=== PATIENT | male | born 1935 | race Caucasian/White ===

== ENCOUNTER → 2016-08-17 | Outpatient (CLI) | payer MEDICARE | END | disposition home or self-care (01) | LOC: LABWHC1 13:18 | PROVIDERS: ATTEND Internal Medicine Rheumatology | DX: M35.3 Polymyalgia rheumatica (principal) | CPT/HCPCS: 36415; 85652; 86140 ==

== ENCOUNTER → 2020-07-06 | Outpatient (CLI) | payer MEDICARE | END | disposition home or self-care (01) | LOC: LABWHC1 13:38 | PROVIDERS: ATTEND Urology | DX: R97.20 Elevated prostate specific antigen [PSA] (principal) | CPT/HCPCS: 36415; 84153 ==

== ENCOUNTER → 2021-02-16 | Outpatient (CLI) | payer MEDICARE ==
[2021-02-17 04:06] LABS: African American GFR (CKD) 89.9 (60.0-200.0); Albumin 4.4 g/dL (3.80-4.90); Albumin/Globulin Ratio 1.42 (1.60-3.17); Anion Gap 11.4 mmol/L (4.00-12.00); BUN/Creat Ratio 18.89 Ratio (12.00-20.00); Calcium 9.4 mg/dL (8.7-10.3); Carbon Dioxide 26.6 mmol/L (21.6-31.8); Globulin 3.1 g/dL (1.6-3.3); Non-African American GFR(CKD) 77.6 (60.0-200.0); Potassium 4.6 mmol/L (3.5-5.5); Total Bilirubin 1.5 mg/dL (0.2-1.2); Total Protein 7.5 g/dL (6.2-8.2)
== END | disposition home or self-care (01) ==
LOC: LABWHC1 11:23
PROVIDERS: ATTEND Nurse Practitioner Adult Health
DX: I48.11 Longstanding persistent atrial fibrillation (principal); R00.1 Bradycardia, unspecified
CPT/HCPCS: 36415; 80053; 84443

== ENCOUNTER → 2021-04-15 | Outpatient (CLI) | payer MEDICARE ==
[2021-04-15 17:28] LABS: African American GFR (CKD) 82.8 (60.0-200.0); BUN/Creat Ratio 20.54 Ratio (12.00-20.00); Blood Urea Nitrogen 19.8 mg/dL (9.0-27.0); Calcium 9.6 mg/dL (8.7-10.3); Carbon Dioxide 27.2 mmol/L (21.6-31.8); Non-African American GFR(CKD) 71.4 (60.0-200.0); Potassium 4.8 mmol/L (3.5-5.5)
== END | disposition home or self-care (01) ==
LOC: LABWHC1 09:56
PROVIDERS: ATTEND Nurse Practitioner Adult Health
DX: I10 Essential (primary) hypertension (principal)
CPT/HCPCS: 36415; 80048

== ENCOUNTER 2021-05-01 16:32 | Emergency (ER) | payer OTHER, MEDICARE ==
[2021-05-01 16:46] VITALS: TEMP 97.8
[2021-05-01] MEDS ORDERED: RX INFO: IV CONTRAST WAS GIVEN 1 EACH MISC MISCELLANE PRN (17:09)
[2021-05-01] MEDS ORDERED: ACETAMINOPHEN TAB 500 MG TAB PO STA (17:10)
[2021-05-01 17:21] LABS: Basophils # (A) 0.1 k/uL (0-0.2); Basophils % (A) 1 %; Eosinophils # (A) 0.4 k/uL (0-0.7); Eosinophils % (A) 4 %; HCT 41.9 % (39.0-53.0); HGB 15.7 gm/dL (13.0-17.5); Lymphocytes # (A) 2.4 k/uL (1.0-4.8); Lymphocytes % (A) 24 %; MCH 36.5 pg (25.0-35.0); MCHC 37.6 g/dL (31.0-37.0); MCV 97.2 fL (80.0-100.0); Mean Platelet Volume 8.2; Monocytes # (A) 0.4 k/uL (0-1.0); Monocytes % (A) 4 %; Neutrophils # (A) 6.5 k/uL (1.3-7.7); Neutrophils % (A) 65 %; Platelet Count 303 k/uL (150-450); RBC 4.31 m/uL (4.30-5.90); WBC 9.9 k/uL (3.8-10.6)
--- NOTE | 2021-05-01 17:26 | ED ---
General Adult HPI - General Chief complaint: Upper Respiratory Infection Stated complaint: cough Source: patient, family, RN notes reviewed, old records reviewed Mode of arrival: ambulatory Limitations: no limitations - History of Present Illness Initial comments: I evaluated the patient when he was placed in a room. Patient is an 86-year-old male with past medical history remarkable for atrial fibrillation, hypertension on anticoagulation who is compliant with medications who presents emergency Department after being sent in from urgent care. Patient present to urgent care this morning over concern for upper respiratory infection. He has been having a worsening cough over the last few days. Has been productive of a grayish white mucus. He has some pain with coughing that is generalized, and states this typically happens when he has a pneumonia in the past. At the outside facility, they did do a chest x-ray. They're concerned for a right lower lobe pneumonia, however the read also stated that there could be an obstructive process and recommended CT chest to rule out possibility of a mass or something similar. Therefore he presents emergency department for further evaluation. He currently denies any acute complaints. He endorses an occasional cough. Denies any fevers or chills or sick contacts. He was vaccinated for COVID-19. His no abdominal pain, nausea, vomiting. He has no urinary complaints at this time. He has no change in bowel habits. He is denying any lower extremity edema or worsening orthopnea. His no paroxysmal nocturnal dyspnea. His no other acute complaints at this time. Denies worsening dyspnea with activity.Patient pres ents for a CT thorax. Patient does endorse a very mild tension-like headache that feels like a belt tied tight around his head and is requesting Tylenol. - Related Data Home Medications Medication Instructions Recorded Confirmed Cholecalciferol [Vitamin D3 (25 2,000 unit PO DAILY 04/30/17 05/01/21 Mcg = 1000 Iu)] Multivitamins, Thera [Multivitamin 1 tab PO DAILY 04/30/17 05/01/21 (formulary)] Losartan Potassium 50 mg PO HS 05/01/21 05/01/21 Metoprolol Tartrate [Lopressor] 12.5 mg PO BID 05/01/21 05/01/21 Potassium Gluconate [Potassium 99 mg PO DAILY 05/01/21 05/01/21 Gluconate ER] Tamsulosin HCl [Flomax] 0.4 mg PO DAILY 05/01/21 05/01/21 hydroCHLOROthiazide [Hydrodiuril] 12.5 mg PO DAILY 05/01/21 05/01/21 Previous Rx's Medication Instructions Recorded Apixaban [Eliquis] 5 mg PO BID #60 tab 05/06/17 Omeprazole [PriLOSEC] 20 mg PO AC-BRKFST #15 cap 05/06/17 Azithromycin [Zithromax] 250 mg PO DAILY 4 Days #4 tab 05/01/21 Allergies Allergy/AdvReac Type Severity Reaction Status Date / Time No Known Allergies Allergy Verified 05/01/21 18:28 Review of Systems ROS Statement: Those systems with pertinent positive or pertinent negative responses have been documented in the HPI. Review of Systems: CONST: Denies fever EYES: Denies blurry vision ENT: Endorses nasal congestion C/V: Denies Chest pain RESP: Endorses cough GI: Denies abdominal pain : Denies dysuria SKIN: Denies rash. MSK: Denies joint pain. NEURO: Endorses headache ROS Other: All systems not noted in ROS Statement are negative. Past Medical History Past Medical History: Hypertension Additional Past Medical History / Comment(s): PMR 2016; [place] Palsy 20 years ago History of Any Multi-Drug Resistant Organisms: None Reported Past Surgical History: Appendectomy, Tonsillectomy Past Anesthesia/Blood Transfusion Reactions: No Reported Reaction Past Psychological History: No Psychological Hx Reported Smoking Status: Never smoker Past Alcohol Use History: Occasional Past Drug Use History: None Reported General Exam - General Exam Comments Initial Comments: General: Appears in no acute distress. Well appearing. HEAD: Normal with no signs of head trauma. EYES: PERRLA, EOMI, conjunctiva normal, no discharge. ENT: Hearing grossly intact, normal oropharynx. RESPIRATORY: Clear breath sounds bilaterally. No wheezes, rales, or rhonchi. No increased work of breathing. C/V: Regular rate with an irregular rhythm. S1 and S2 auscultated. No peripheral edema. Peripheral pulses are 2+ and intact throughout. ABD: Abd is soft, nontender, nondistended EXT: Normal range of motion, no obvious deformity SKIN: No rashes or lesions observed on exposed skin. NEURO: Alert and oriented 4. Limitations: no limitations Course Vital Signs 05/01/21 05/01/21 05/01/21 16:40 17:03 19:10 Temperature 97.8 F Pulse Rate 63 60 Respiratory 22 16 Rate Blood Pressure 157/86 144/92 O2 Sat by Pulse 95 96 100 Oximetry Medical Decision Making - Medical Decision Making Based on the patient's presentation and physical exam, he seems to be having an upper respiratory illness over the last few days. Patient was tested for Covid at the outside facility and he is vaccinated. Covid test was negative based on paperwork that he brought.. However due to being sent for CT thorax to rule out the possibility of obstructive process in his lungs, we will obtain a CT thorax with contrast as well as basic laboratory studies. I do not believe that he requires any further workup at this time. Screening EKG will be obtained. Patient was in agreement this plan. He otherwise appears well and requests Tylenol for mild tension-like headache that he is developing in the resuscitation bay. Patient's EKG shows chronic atrial fibrillation without any signs of acute ischemia.Patient's laboratory studies were remarkable for normal renal function. The remainder of his labs unremarkable. CT of the chest with contrast was obtained and showed no acute cardiopulmonary process. There is no obstructing mass or const consolidation or pleural effusion. There is no pneumothorax. There is a small hiatal hernia. On reevaluation come patient remains relatively asymptomatic. He has an occasional cough. We discussed the results of his imaging and labs. Believe it is safer to be discharged home at this time. Due to the persistent cough, patient is requesting antibiotics. I believe it is reasonable to provide him with a Z-Madan for home with close follow up with his PCP. He was in agreement with this plan. He will be given a dose of azithromycin prior to discharge 500 mg and a prescription for the remaining doses. I will provide the patient with a prescription for azithromycin. I instructed the patient to follow up with their PCP in the next 3 days . I explained that the patient should return to the emergency department if they experience any worsening symptoms. Strict return precautions were discussed with the patient. The patient expressed understanding of these instructions. I answered all questi ons that the patient had. The patient was discharged home in good condition with their prescriptions and follow up information. - Lab Data Result diagrams: 05/01/21 17:12 05/01/21 17:12 Lab Results 05/01/21 05/01/21 Range/Units 17:12 17:12 WBC 9.9 (3.8-10.6) k/uL RBC 4.31 (4.30-5.90) m/uL Hgb 15.7 (13.0-17.5) gm/dL Hct 41.9 (39.0-53.0) % MCV 97.2 (80.0-100.0) fL MCH 36.5 H (25.0-35.0) pg MCHC 37.6 H (31.0-37.0) g/dL RDW 13.0 (11.5-15.5) % Plt Count 303 (150-450) k/uL MPV 8.2 Neutrophils % 65 % Lymphocytes % 24 % Monocytes % 4 % Eosinophils % 4 % Basophils % 1 % Neutrophils # 6.5 (1.3-7.7) k/uL Lymphocytes # 2.4 (1.0-4.8) k/uL Monocytes # 0.4 (0-1.0) k/uL Eosinophils # 0.4 (0-0.7) k/uL Basophils # 0.1 (0-0.2) k/uL Sodium 138 (137-145) mmol/L Potassium 4.1 (3.5-5.1) mmol/L Chloride 101 (98-107) mmol/L Carbon Dioxide 29 (22-30) mmol/L Anion Gap 8 mmol/L BUN 16 (9-20) mg/dL Creatinine 0.80 (0.66-1.25) mg/dL Est GFR (CKD-EPI)AfAm >90 (>60 ml/min/1.73 sqM) Est GFR (CKD-EPI)NonAf 82 (>60 ml/min/1.73 sqM) Glucose 99 (74-99) mg/dL Calcium 9.5 (8.4-10.2) mg/dL Magnesium 2.1 (1.6-2.3) mg/dL - EKG Data -: EKG Interpreted by Me EKG Comments: 12-lead Electrocardiogram Interpretation Note EKG was reviewed and interpreted by myself. 12-lead ECG performed at 1656 is interpreted by me as revealing atrial fibrillation at a rate of 61 beats per minute. [place] is normal. DC interval is unobtainable, QRS ration is 100 ms, QTc is 420 ms.. There were no ST or T wave abnormalities to suggest myocardial ischemia or injury. R wave progression across the precordium was satisfactory. By my interpretation this EKG is non-diagnostic for acute ischemia. Disposition Clinical Impression: URI (upper respiratory infection) Disposition: HOME SELF-CARE Condition: Good Instructions (If sedation given, give patient instructions): Upper Respiratory Infection (ED) Prescriptions: Azithromycin [Zithromax] 250 mg PO DAILY 4 Days #4 tab Is patient prescribed a controlled substance at d/c from ED?: No Referrals: [facility],Clinic [Primary Care Provider] - 1-2 days
[2021-05-01 17:54] LABS: African American GFR (CKD) >90 (>60 ml/min/1.73 sqM); Anion Gap 8 mmol/L; Blood Urea Nitrogen 16 mg/dL (9-20); Calcium 9.5 mg/dL (8.4-10.2); Carbon Dioxide 29 mmol/L (22-30); Chloride 101 mmol/L (98-107); Glucose 99 mg/dL (74-99); Magnesium 2.1 mg/dL (1.6-2.3); Non-African American GFR(CKD) 82 (>60 ml/min/1.73 sqM); Potassium 4.1 mmol/L (3.5-5.1); Sodium 138 mmol/L (137-145)
--- NOTE | 2021-05-01 18:46 | CT ---
EXAMINATION TYPE: CT chest w con DATE OF EXAM: 05/01/2021 COMPARISON: CT chest 06/23/2017 HISTORY: Cough for [address] DLP: 576 mGycm. Automated Exposure Control for Dose Reduction was Utilized. CONTRAST: CT scan of the thorax is performed with IV Contrast, patient injected with 100 mL of Isovue 300. 2-D sagittal and coronal reformatted images were obtained. FINDINGS: Left atrium appears mildly enlarged, similar to prior. No pericardial effusion. Thoracic aorta and ma in pulmonary arteries are of normal caliber. No filling defects within the pulmonary arteries to sugg est pulmonary embolism. No mediastinal or axillary lymphadenopathy. Central airways are normal course and caliber. Lungs appear clear. No pleural effusion or pneumothora x. No suspicious pulmonary nodules. Visualized osseous structures appear intact. Limited visualization of the upper abdomen demonstrates small hiatal hernia. Unchanged left adrenal nodule. IMPRESSION: 1. No pulmonary embolism. 2. No focal consolidation, pleural effusion, or pneumothorax. 3. Small hiatal hernia.
[2021-05-01] MEDS ORDERED: AZITHROMYCIN 500 MG TAB PO STA (19:01)
[2021-05-01 19:13] VITALS: BP 144/92; PULSE 60; RESP 16
== END 2021-05-01 19:13 | disposition home or self-care (01) ==
LOC: EC 16:32
DX: J06.9 Acute upper respiratory infection, unspecified (principal); I10 Essential (primary) hypertension; Z79.01 Long term (current) use of anticoagulants; Z90.49 Acquired absence of other specified parts of digestive tract
CPT/HCPCS: 99284 ×2; 36415; 93005; 80048; 83735; 85025; 71260; Q9967

== ENCOUNTER 2022-04-04 14:19 | Emergency (ER) | payer OTHER, MEDICARE ==
[2022-04-04 14:51] VITALS: TEMP 97.8
[2022-04-04] MEDS ORDERED: MORPHINE SULFATE 4 MG/ML SYRINGE IVP STA (16:04)
[2022-04-04] MEDS ORDERED: PANTOPRAZOLE 40 MG/10 ML VIAL IVP STA (16:04)
[2022-04-04] MEDS ORDERED: SODIUM CHLORIDE 0.9% 1,000 ML IV STA (16:04)
[2022-04-04 16:11] VITALS: RESP 18
[2022-04-04 16:33] LABS: Basophils # (A) 0.1 k/uL (0-0.2); Basophils % (A) 1 %; Eosinophils # (A) 0.3 k/uL (0-0.7); Eosinophils % (A) 3 %; HCT 43.4 % (39.0-53.0); HGB 14.5 gm/dL (13.0-17.5); Lymphocytes # (A) 2.5 k/uL (1.0-4.8); Lymphocytes % (A) 25 %; MCH 32.6 pg (25.0-35.0); MCHC 33.5 g/dL (31.0-37.0); MCV 97.3 fL (80.0-100.0); Mean Platelet Volume 8.3; Monocytes # (A) 0.6 k/uL (0-1.0); Monocytes % (A) 6 %; Neutrophils # (A) 6.5 k/uL (1.3-7.7); Neutrophils % (A) 65 %; Platelet Count 257 k/uL (150-450); RBC 4.46 m/uL (4.30-5.90); RDW 12.6 % (11.5-15.5)
[2022-04-04 16:39] LABS: ALT 18 U/L (4-49); African American GFR (CKD) >90 (>60 ml/min/1.73 sqM); Albumin 4.3 g/dL (3.5-5.0); Anion Gap 9 mmol/L; Blood Urea Nitrogen 17 mg/dL (9-20); Calcium 9.4 mg/dL (8.4-10.2); Carbon Dioxide 28 mmol/L (22-30); Chloride 99 mmol/L (98-107); Glucose 74 mg/dL (74-99); Non-African American GFR(CKD) 79 (>60 ml/min/1.73 sqM); Sodium 136 mmol/L (137-145); Total Bilirubin 1.1 mg/dL (0.2-1.3)
[2022-04-04 16:48] LABS: Partial Thromboplastin Time 26.4 sec (22.0-30.0); Prothrombin Time 10.8 sec (9.0-12.0)
[2022-04-04 16:49] LABS: AST 38 U/L (17-59); Alkaline Phosphatase 72 U/L (38-126); Magnesium 1.9 mg/dL (1.6-2.3); Potassium 4.6 mmol/L (3.5-5.1)
--- NOTE | 2022-04-04 17:51 | CT ---
EXAMINATION TYPE: CT abdomen pelvis w con DATE OF EXAM: 04/04/2022 COMPARISON: 04/30/2017 HISTORY: rectal bleeding and abdominal pain. GI bleed protocol CT DLP: 3064.8 mGycm Automated exposure control for dose reduction was used. CONTRAST: Performed without and with IV Contrast, patient injected with 100 mL of Isovue 370. Images obtained from the diaphragm to the floor the pelvis without and subsequently with the IV contr ast according to the GI bleeding protocol. FINDINGS: Heart is enlarged. No pericardial effusion. Lung bases are clear of consolidation. No pleural effusio n. There is hiatal hernia. Liver and spleen are intact. No pancreatic mass. There is small calcified gallstones. The bile ducts are not dilated. There is no adrenal mass. Kidneys have normal size. There is normal enhancement of the kidneys. No hy dronephrosis. No retroperitoneal adenopathy. Appendix not seen. Bladder distends smoothly. There is e nlarged prostate with some calcification. Prostate measures 6 cm. No inguinal hernia. No free fluid i n the pelvis. There are numerous sigmoid diverticula. No sign of diverticulitis. There is a 1 cm rounded area of fat density within the lumen of the mid small bowel in the mid abdome n on image 44 that could be a lipoma. There is no mesenteric edema. No ascites or free air. No sign of a bowel obstruction. The delayed deb ges failed to show evidence of any contrast extravasation There is normal contrast opacification of the abdominal aorta. There is arterial flow in the celiac a rtery and superior mesenteric artery. There is arterial flow in the renal and iliac and femoral arter ies. No evidence of hemodynamic stenosis. No aneurysm or dissection. The lumbar spine is intact. There is multilevel degenerative disc space narrowing and spur formation. No compression fracture. The bony pelvis is intact. The hip joints are intact. IMPRESSION: No evidence of active GI bleeding. Moderate sigmoid diverticulosis without diverticulitis. Enlarged p rostate. Atherosclerotic vascular disease. No significant change. Possible wall lipoma of the mid small bowel. No bowel obstruction.
[2022-04-04 18:33] VITALS: BP 148/84; PULSE 58
--- NOTE | 2022-04-04 18:54 | ED ---
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 His noticed that the last 6-8 days he has been having episodes of bright red blood per rectum. His noticed bright red blood around his stool in the toilet. His noticed it on the tissue as well. Denies any dark blood. Denies clots. Denies nausea or vomiting. Does endorse nonspecific abdominal discomfort. Denies fevers, chills, cough. Denies sick contacts. Denies any worsening shortness of breath. Denies any lower extremity edema. Denies any worsening lightheadedness. Has chronic fatigue which is not worse than his baseline. Last colonoscopy was over 10 years ago. Denies any sick contacts. Presents over concern for the rectal bleeding. Denies any syncopal episodes, blurry vision, lightheadedness. Does endorses chronic fatigue, but no worsening of that fatigue. Presents for further evaluation at this time after speaking with his PCP. - Related Data Home Medications Medication Instructions Recorded Confirmed Cholecalciferol [Vitamin D3 (25 2,000 unit PO DAILY 04/30/17 05/01/21 Mcg = 1000 Iu)] Multivitamins, Thera [Multivitamin 1 tab PO DAILY 04/30/17 05/01/21 (formulary)] Losartan Potassium 50 mg PO HS 05/01/21 05/01/21 Metoprolol Tartrate [Lopressor] 12.5 mg PO BID 05/01/21 05/01/21 Potassium Gluconate [Potassium 99 mg PO DAILY 05/01/21 05/01/21 Gluconate ER] Tamsulosin HCl [Flomax] 0.4 mg PO DAILY 05/01/21 05/01/21 hydroCHLOROthiazide [Hydrodiuril] 12.5 mg PO DAILY 05/01/21 05/01/21 Previous Rx's Medication Instructions Recorded Apixaban [Eliquis] 5 mg PO BID #60 tab 05/06/17 Omeprazole [PriLOSEC] 20 mg PO AC-BRKFST #15 cap 05/06/17 Azithromycin [Zithromax] 250 mg PO DAILY 4 Days #4 tab 05/01/21 Lidocaine 5% Patch [Lidoderm 5% 1 each TP DAILY PRN 7 Days #7 patch 04/04/22 Patch] Allergies Allergy/AdvReac Type Severity Reaction Status Date / Time No Known Allergies Allergy Verified 04/04/22 18:23 Review of Systems ROS Statement: Those systems with pertinent positive or pertinent negative responses have been documented in the HPI. Review of Systems: CONST: Denies fever EYES: Denies blurry vision ENT: Denies nasal congestion C/V: Denies Chest pain RESP: Denies shortness of breath GI: Endorses abdominal pain : Denies dysuria SKIN: Denies rash. MSK: Denies joint pain. NEURO: Denies headache ROS Other: All systems not noted in ROS Statement are negative. Past Medical History Past Medical History: Hypertension Additional Past Medical History / Comment(s): PMR 2016; [place] Palsy 20 years ago History of Any Multi-Drug Resistant Organisms: None Reported Past Surgical History: Appendectomy, Tonsillectomy Past Anesthesia/Blood Transfusion Reactions: No Reported Reaction Past Psychological History: No Psychological Hx Reported Smoking Status: Never smoker Past Alcohol Use History: Occasional Past Drug Use History: None Reported General Exam - General Exam Comments Initial Comments: General: Appears in no acute distress. HEAD: Normal with no signs of head trauma. EYES: PERRLA, EOMI, conjunctiva normal, no discharge. ENT: Hearing grossly intact, normal oropharynx. RESPIRATORY: Clear breath sounds bilaterally. No wheezes, rales, or rhonchi. C/V: Regular rate and rhythm. S1 and S2 auscultated, no edema, peripheral pulses 2+ and intact throughout ABD: Abdomen is soft, nondistended. No obvious tender to palpation. No guarding. No rebound tenderness. Some mild left flank tenderness to palpation. No guarding. Rectal exam performed the presence of a male staff member. Good tone. Light brown blood. No gross blood. Nonbleeding external hemorrhoids pr esent. Fecal occult blood was sent. EXT: Normal range of motion, no obvious deformity SKIN: No rashes or lesions observed on exposed skin. NEURO: Alert and oriented 4. Limitations: no limitations Course Vital Signs 04/04/22 04/04/22 04/04/22 14:46 15:58 17:30 Temperature 97.8 F Pulse Rate 54 L 56 L 58 L Respiratory 16 18 18 Rate Blood Pressure 160/81 176/103 148/84 O2 Sat by Pulse 96 98 97 Oximetry Medical Decision Making - Medical Decision Making Based on the patient's presentation and physical exam, I'm concerned for possible GI bleeding the patient. Appears to be a lower GI bleed with the bright red blood per rectum per patient. Workup is relatively unremarkable. Did recommend with the denies abdominal discomfort that we obtain a CT abdomen and pelvis in addition to abdominal laboratory studies. He was in agreement wi th this plan. He will be given a 1 L fluid bolus as well as analgesic medications. He was in agreement with this plan. Vital signs are within normal limits. EKG shows atrial fibrillation but no acute changes or signs of acute ischemia. Laboratory studies are remarkable for a hemoglobin within normal limits at 14.5. Coags are within normal limits. Occult blood is positive. Remainder the labs are unremarkable. CT of the abdomen and pelvis reveals no evidence of active GI bleeding. There is diverticulosis without diverticulitis. There is enlarged prostate. There is a possible lipoma the mid small bowel but no bowel obstruction. No other findings. I discussed results with the patient. Pain is improved. His vital signs are within normal limits, hemoglobin is within normal limits, it does not appear he is having a significant life-threatening GI bleed at this time although he does require follow-up. I did offer admission versus discharge home. As his hemoglobin is normal, and he has no acute symptoms, I do believe discharge home is reasonable with close follow-up with his PCP and strict return precautions, which he was in agreement with. We discussed any worsening bloody bowel movements and the need to seek immediate medical attention. Bloody bowel movements have been ongoing for the last week that it been bloody. We did discuss that we would expect to see a drop in his hemoglobin over that time if it was a significant bleed. However I did recommend close follow-up. He was in agreement this plan. Will be given follow-up information with surgery as well as GI to obtain a colonoscopy and EGD. We'll follow up with his PCP in the next 3 days to obtain repeat laboratory draws including CBC. All this was discussed with the patient as well as his . They were both in agreement with the plan. Will return to the emergency department if worsening symptoms or if there is a significant increase in the amount of bleeding. I did discuss with him holding a dose of his blood thinning medication until he can follow-up with his PCP tomorrow over the phone. He was in agreement this plan. Vital signs remain within normal limits at this time. I will provide the patient with a prescription for lidocaine patches. I instructed the patient to follow up with their PCP in the next 1-3 days. I explained that the patient should return to the emergency department if they experience any worsening symptoms. Strict return precautions were discussed with the patient. The patient expressed understanding of these instructions. I answered all questions that the patient had. The patient was discharged home in good condition with their prescriptions and follow up information. - Lab Data Result diagrams: 04/04/22 16:12 04/04/22 16:12 Lab Results 04/04/22 04/04/22 04/04/22 Range/Units 16:12 16:12 16:12 WBC 10.0 (3.8-10.6) k/uL RBC 4.46 (4.30-5.90) m/uL Hgb 14.5 (13.0-17.5) gm/dL Hct 43.4 (39.0-53.0) % MCV 97.3 (80.0-100.0) fL MCH 32.6 (25.0-35.0) pg MCHC 33.5 (31.0-37.0) g/dL RDW 12.6 (11.5-15.5) % Plt Count 257 (150-450) k/uL MPV 8.3 Neutrophils % 65 % Lymphocytes % 25 % Monocytes % 6 % Eosinophils % 3 % Basophils % 1 % Neutrophils # 6.5 (1.3-7.7) k/uL Lymphocytes # 2.5 (1.0-4.8) k/uL Monocytes # 0.6 (0-1.0) k/uL Eosinophils # 0.3 (0-0.7) k/uL Basophils # 0.1 (0-0.2) k/uL PT 10.8 (9.0-12.0) sec INR 1.0 (<1.2) APTT 26.4 (22.0-30.0) sec Sodium (137-145) mmol/L Potassium (3.5-5.1) mmol/L Chloride (98-107) mmol/L Carbon Dioxide (22-30) mmol/L Anion Gap mmol/L BUN (9-20) mg/dL Creatinine (0.66-1.25) mg/dL Est GFR (CKD-EPI)AfAm (>60 ml/min/1.73 sqM) Est GFR (CKD-EPI)NonAf (>60 ml/min/1.73 sqM) Glucose (74-99) mg/dL Plasma Lactic Acid Wilmer (0.7-2.0) mmol/L Calcium (8.4-10.2) mg/dL Magnesium (1.6-2.3) mg/dL Total Bilirubin (0.2-1.3) mg/dL AST (17-59) U/L ALT (4-49) U/L Alkaline Phosphatase (38-126) U/L Total Protein (6.3-8.2) g/dL Albumin (3.5-5.0) g/dL Stool Occult Blood Positive (Negative) 04/04/22 04/04/22 Range/Units 16:12 16:12 WBC (3.8-10.6) k/uL RBC (4.30-5.90) m/uL Hgb (13.0-17.5) gm/dL Hct (39.0-53.0) % MCV (80.0-100.0) fL MCH (25.0-35.0) pg MCHC (31.0-37.0) g/dL RDW (11.5-15.5) % Plt Count (150-450) k/uL MPV Neutrophils % % Lymphocytes % % Monocytes % % Eosinophils % % Basophils % % Neutrophils # (1.3-7.7) k/uL Lymphocytes # (1.0-4.8) k/uL Monocytes # (0-1.0) k/uL Eosinophils # (0-0.7) k/uL Basophils # (0-0.2) k/uL PT (9.0-12.0) sec INR (<1.2) APTT (22.0-30.0) sec Sodium 136 L (137-145) mmol/L Potassium 4.6 (3.5-5.1) mmol/L Chloride 99 (98-107) mmol/L Carbon Dioxide 28 (22-30) mmol/L Anion Gap 9 mmol/L BUN 17 (9-20) mg/dL Creatinine 0.84 (0.66-1.25) mg/dL Est GFR (CKD-EPI)AfAm >90 (>60 ml/min/1.73 sqM) Est GFR (CKD-EPI)NonAf 79 (>60 ml/min/1.73 sqM) Glucose 74 (74-99) mg/dL Plasma Lactic Acid Wilmer 1.0 (0.7-2.0) mmol/L Calcium 9.4 (8.4-10.2) mg/dL Magnesium 1.9 (1.6-2.3) mg/dL Total Bilirubin 1.1 (0.2-1.3) mg/dL AST 38 (17-59) U/L ALT 18 (4-49) U/L Alkaline Phosphatase 72 (38-126) U/L Total Protein 7.0 (6.3-8.2) g/dL Albumin 4.3 (3.5-5.0) g/dL Stool Occult Blood (Negative) - EKG Data -: EKG Interpreted by Me EKG Comments: 12-lead Electrocardiogram Interpretation Note EKG was reviewed and interpreted by myself. 12-lead ECG performed at 1620 is interpreted by me as revealing atrial fibrillation with first-degree AV block at a rate of 56 beats per minute. [place] is normal. [place] interval is 230 ms, QRS duration 104 ms, QTc is 451 ms. PVCs are present.. There were no ST or T wave abnormalities to suggest myocardial ischemia or injury. R wave progression across the precordium was satisfactory. By my interpretation this EKG is non- diagnostic for acute ischemia. Disposition Clinical Impression: Lower GI bleed, Occult blood positive stool Disposition: HOME SELF-CARE Condition: Good Instructions (If sedation given, give patient instructions): Gastrointestinal Bleeding (ED) Additional Instructions: Follow up with PCP in next 1-3 days. Obtain repeat blood testing. Current hemoglobin is within normal limits at 14.5. Return if any worsening large bloody bowel movement. Requires a colonoscopy outpatient. Return with any worsening or concerning symptoms to the Emergency department. Prescriptions: Lidocaine 5% Patch [Lidoderm 5% Patch] 1 each TP DAILY PRN 7 Days #7 patch PRN Reason: Pain Is patient prescribed a controlled substance at d/c from ED?: No Referrals: [facility],Clinic [Primary Care Provider] - 1-2 days Lb Bahena MD [STAFF PHYSICIAN] - 1-2 days Sabi Willoughby MD [STAFF PHYSICIAN] - 1-2 days Time of Disposition: 18:40
== END 2022-04-04 19:17 | disposition home or self-care (01) ==
LOC: EC 14:19
DX: K92.2 Gastrointestinal hemorrhage, unspecified (principal); I10 Essential (primary) hypertension
CPT/HCPCS: 36415; 80053; 83605; 83735; 85025; 85610; 85730; 82272; 74177; 99285; 96374; 96375; 96361; J2270; C9113; Q9967

== ENCOUNTER 2022-04-08 12:25 | Day surgery (SDC) | payer MEDICARE, OTHER ==
[2022-04-07 12:17] VITALS: BMI 30.4
[~2022-04-08 12:25] MED LIST: LACTATED RINGERS 1,000 ML IV SCH
[2022-04-08 13:50] VITALS: TEMP 98
[2022-04-08] MEDS ORDERED: LABETALOL 5 MG/ML VIAL MDV ONE (14:00)
[2022-04-08] MEDS ORDERED: PROPOFOL 10 MG/ML 20 ML VIAL IV ONE (14:00)
--- NOTE | 2022-04-08 14:23 | P.PCN ---
Date of Procedure: 04/08/22 Procedure(s) Performed: BRIEF HISTORY: Patient is a 87-year-old pleasant white male scheduled for an elective colonoscopy as a part of evaluation of intermittent rectal bleeding for the last 2 weeks' duration. He has been on eliquis fro a fib which is on hold for the last 2 days. PROCEDURE PERFORMED: Colonoscopy. PREOPERATIVE DIAGNOSIS: Rectal bleeding. IV sedation per Anesthesia. PROCEDURE: After informed consent was obtained, the patient, was brought into the endoscopy unit. IV sedation was administered by Anesthesia under continuous monitoring. Digital rectal examination was normal. Initially the Olympus CF-160 flexible video colonoscope was then inserted in the rectum, gradually advanced into the cecum without any difficulty. Careful examination was performed as the scope was gradually being withdrawn. Ileocecal valve and the appendiceal orifice were visualized and appeared normal. Prep was excellent. Mucosa of the cecum, ascending colon, transverse colon, descending colon, sigmoid colon, and rectum appeared normal. Scattered sigmoid diverticulosis. Retroflexion was performed in the rectum and a 2 internal hemorrhoids were seen. The patient tolerated the procedure well. IMPRESSION: Normal-appearing colon from rectum to cecum no NSAID colorectal neoplasia . Grade 2 internal hemorrhoids Scattered sigmoid diverticulosis RECOMMENDATIONS: Findings of this examination were discussed with the patient as well as his family. He was advised to be a high-fiber diet and take fiber supplements a regular basis. Resume eliquis today..
[2022-04-08 15:01] VITALS: PULSE 55; RESP 16
[2022-04-08 15:02] VITALS: BP 162/87
== END 2022-04-08 15:09 | disposition home or self-care (01) ==
LOC: ORWHC2ENDO 12:25
PROVIDERS: ATTEND Internal Medicine Gastroenterology
DX: K64.1 Second degree hemorrhoids (principal); K57.30 Diverticulosis of large intestine without perforation or abscess without bleeding; K62.5 Hemorrhage of anus and rectum; I10 Essential (primary) hypertension; I48.91 Unspecified atrial fibrillation; E78.5 Hyperlipidemia, unspecified; K21.9 Gastro-esophageal reflux disease without esophagitis; Z79.01 Long term (current) use of anticoagulants; Z79.811 Long term (current) use of aromatase inhibitors; Z79.891 Long term (current) use of opiate analgesic
CPT/HCPCS: 45378; J2704